=== PATIENT | female | born 1945 | race Caucasian/White ===

== ENCOUNTER → 2017-02-07 | Outpatient (CLI) | payer BC ==
[~2017-02-07] MED LIST: ALBUTEROL0.09 MG/A1 IH; ALPHAGAN OP; LEXAPRO10 MG PO; VITAMIN C BUFF500 MG PO; VITAMIN D1000 IU PO; XALATAN 2.5 ML2.5 ML OP; [UNRECOGNIZED DRUG - CODE] PO
== END ==
LOC: MC.RAD 16:48
DX: Z12.31 Encounter for screening mammogram for malignant neoplasm of breast (principal)

== ENCOUNTER → 2018-03-02 | Outpatient (CLI) | payer BC | LOC: MC.RAD 13:42 | DX: Z12.31 Encounter for screening mammogram for malignant neoplasm of breast (principal); N63.20 Unspecified lump in the left breast, unspecified quadrant ==

== ENCOUNTER → 2018-03-09 | Outpatient (CLI) | payer BC | LOC: MC.RAD 07:27 | DX: N60.02 Solitary cyst of left breast (principal) ==

== ENCOUNTER → 2019-03-28 | Outpatient (CLI) | payer BC | LOC: MC.RAD 11:00 | DX: Z12.31 Encounter for screening mammogram for malignant neoplasm of breast (principal) ==

== ENCOUNTER 2019-10-22 17:12 | Observation (INO) | payer MEDICARE, BC ==
[~2019-10-22] VITALS: Ht 167.6 cm; Wt 103.2 kg
[2019-10-22 17:37] LABS: BASO # 0.1 (0.0-0.2); BASO % 0.4 % (0.0-2.0); EOS # 0.1 (0.0-0.7); EOS % 0.4 % (0-4.0); GRAN # 12.3 (1.4-6.5); GRAN % 75.9 % (42.2-75.2); HEMATOCRIT 40.2 % (37.0-47.0); HEMOGLOBIN 12.9 g/dl (12.5-16.0); LYMPH # 2.6 (1.2-3.4); LYMPH % 15.9 % (20.0-51.0); MEAN CELL VOLUME 94 fl (80.0-100.0); MEAN CORPUSCULAR HEMOGLOBIN 30 pg (27.0-31.0); MEAN CORPUSCULAR HGB CONC 32 g/dl (33.0-37.0); MEAN PLATELET VOLUME 8.5 fl (7.4-10.4); MONO # 1.1 (0.1-0.6); MONO % 6.9 % (1.7-9.3); PLATELET COUNT 243 K/mm3 (130-400); REDCELL DISTRIBUTION WIDTH-CV 13.5 % (11.5-14.5)
[2019-10-22 17:47] LABS: ALANINE AMINOTRANSFERASE 21 U/L (4-34); ALKALINE PHOSPHATASE 101 U/L (50-136); ANION GAP 7 mmol/L (7-16); AST,SGOT 34 U/L (15-37); BILIRUBIN,TOTAL 0.6 mg/dL (0.0-1.0); BLOOD UREA NITROGEN 14 mg/dL (7-17); CALCIUM 9.1 mg/dL (8.4-10.2); CARBON DIOXIDE 28 mmol/L (22-30); CHLORIDE 102 mmol/L (98-107); CREATININE, serum 0.53 (0.52-1.25); GLUCOSE 112 mg/dL (74-106); POTASSIUM 3.9 mmol/L (3.4-5.0); SODIUM 136 mmol/L (137-145); TOTAL PROTEIN 7.4 gm/dL (6.4-8.2)
[2019-10-22 17:52] LABS: INR 1.1 (0.8-3.0); PROTHROMBIN TIME 12.4 SECONDS (9.7-12.8)
[2019-10-22 17:54] LABS: PARTIAL THROMBOPLASTIN TIME 28.4 SECONDS (26.0-37.0)
[2019-10-22 17:58] LABS: TROPONIN-I < 0.012 ng/mL (0.000-0.035)
--- NOTE | 2019-10-22 23:39 | NUR ---
RECIEVED PATIENT FROM [facility] IN PACU. PATIENT UNDERWENT GENERAL AND LOCAL FOR A "NASTY GALLBLADDER". PATIENT HAS A LEFT ANTICUBITAL IV THAT IS INFUSING WITH 150MLS/HR OF NORMAL SALINE. PATIENT HAS THREE LAP SITES THAT ARE COVERED WITH BANDAIDS THAT ARE CLEAN, DRY, AND INTACT. PATIENT WAS TITRATED DOWN TO NO O2. PATIENT IS ABLE TO DRINK SOME WATER AND EAT SOME JELLO. PATIENT IS NOT REPORTING ANY PAIN OR NAUSEA. PATIENT DOES HAVE A BOTTOM FRONT TOOTH THAT IS WIGGLY AND ABOUT TO FALL OUT FROM BEING INTUBATED. CHARGE NURSE AND HOUSE SUP NOTIFIED OF THIS. PATIENT HEART SOUNDS ARE S1 AND S2 AND LUNGS ARE CLEAR. BOWEL SOUNDS ARE HYPOACTIVE AT THIS TIME. WILL CONTINUALLY MONITOR.
[2019-10-22 23:41] VITALS: BP 101/54; PULSE 83
[2019-10-22 23:53] VITALS: BP 101/42; PULSE 81
[2019-10-23] VITALS (8 sets, daily range): BP systolic 84–100; BP diastolic 34–47; PULSE 72–78; TEMP 98–98.2
--- NOTE | 2019-10-23 05:14 | NUR ---
PATIENT HAS HAD A PRETTY UNEVENTFUL NIGHT SINCE COMING TO THE FLOOR. PATIENT HAS BEEN UP TO THE RESTROOM A COUPLE OF TIMES. PATIENT IS DENYING ANY PAIN. IV WAS LEAKING SO IT WAS TIGHTENED BACK UP AND WORKS GREAT, GOOD BLOOD RETURN. IV FLUIDS ARE INFUSING EVEN THOUGH PATIENT IS TAKING FLUIDS AND FOODS WITHOUT NAUSEA AND VOMITING BECAUSE OF PRESSURES BEING A LITTLE SOFT. DENIES ANY OTHER NEEDS. WILL REPORT OFF TO DAY SHIFT.
--- NOTE | 2019-10-23 05:24 | NUR ---
PATIENT REQUESTED PAIN MEDICATION FOR A HEADACHE.
--- NOTE | 2019-10-23 11:55 | NUR ---
First visit from the produce production team member. No needs right now.
== END 2019-10-23 12:00 | disposition home or self-care (01) ==
LOC: COL.ER 17:12 → MEDICAL 19:54
PROVIDERS: Emergency Medicine; ADMIT Surgery
DX: K80.12 Calculus of gallbladder with acute and chronic cholecystitis without obstruction (principal); K82.1 Hydrops of gallbladder; F41.9 Anxiety disorder, unspecified; J45.909 Unspecified asthma, uncomplicated; H40.9 Unspecified glaucoma; H40.059 Ocular hypertension, unspecified eye; K57.30 Diverticulosis of large intestine without perforation or abscess without bleeding; K44.9 Diaphragmatic hernia without obstruction or gangrene; M46.84 Other specified inflammatory spondylopathies, thoracic region; N28.1 Cyst of kidney, acquired; K76.89 Other specified diseases of liver; E66.9 Obesity, unspecified; Z68.36 Body mass index [BMI] 36.0-36.9, adult; Z87.891 Personal history of nicotine dependence; Z88.1 Allergy status to other antibiotic agents; Z79.899 Other long term (current) drug therapy; Z86.19 Personal history of other infectious and parasitic diseases
CPT/HCPCS: G0378; J0690; J1100; J1170; J1885; J2270; J2405; J2543; J2704; J3010; J7030; Q9967

== ENCOUNTER 2021-02-22 11:18 | Emergency (ER) | payer BC ==
[~2021-02-22] VITALS: Ht 167.6 cm; Wt 97.7 kg
[2021-02-22 11:21] VITALS: TEMP 99
[2021-02-22] MEDS ORDERED: NORCO 325 MG-51 TAB PO (13:36)
[2021-02-22 13:51] VITALS: BP 135/64; PULSE 87
== END 2021-02-22 13:51 | disposition home or self-care (01) ==
LOC: COL.ER 11:18
DX: S53.124A Posterior dislocation of right ulnohumeral joint, initial encounter (principal); W01.0XXA Fall on same level from slipping, tripping and stumbling without subsequent striking against object, initial encounter
CPT/HCPCS: J3010

== ENCOUNTER 2022-03-24 05:33 | Day surgery (SDC) | payer BC ==
[~2022-03-24] VITALS: Ht 167.6 cm; Wt 97.5 kg
[2022-03-24] VITALS (11 sets, daily range): BP systolic 105–130; BP diastolic 54–83; PULSE 60–95; TEMP 97.4–98.1
[~2022-03-24 05:33] MED LIST changes: +NORCO 325 MG-51 TAB PO
[2022-03-24] MEDS ORDERED: XALATAN EYE DROPS OU (06:15)
[2022-03-24] MEDS ORDERED: ALPHAGAN OPHTH D5 ML OU (06:16)
[2022-03-24] MEDS ORDERED: PROVENTIL0.09 MG/A1 IH (06:17)
[2022-03-24] MEDS ORDERED: CELEXA40 MG PO (06:18)
[2022-03-24] MEDS ORDERED: QUESTRAN4 GM/9 GM PO (06:18)
[2022-03-24 06:45] LABS: COLLECTION METHOD CATHETER
[2022-03-24 07:05] LABS: URINE APPEARANCE Clear (CLEAR/HAZY); URINE BLOOD Negative (NEGATIVE); URINE COLOR Yellow (YELLOW); URINE GLUCOSE Negative (NEGATIVE); URINE KETONE Negative (NEGATIVE); URINE NITRATE Negative (NEGATIVE); URINE PROTEIN(semi-quant) Negative (NEGATIVE); URINE UROBILINOGEN 0.2 E.U/dL (0.2-1.0)
[2022-03-24 07:12] LABS: MUCOUS Present (NOT PRESENT); SQUAMOUS EPITHELIAL None Seen /hpf (0-10); URINE BACTERIA None Seen /hpf (NONE SEEN); URINE WBC 0-2 /hpf (0-2)
--- NOTE | 2022-03-24 09:15 | NUR ---
arrived on unit per bed from PACU, awake and alert but sleepy, IV infusing and placed on pump at 75ml/hr, O2 on at 1L/NC and O2 sat 95%, colin cath patent draining clear yellow urine, BOBBI hose and SCDs on bilaterally, aquacel dressing to right knee CD&I, denies needs at this time, daughter at bedside
--- NOTE | 2022-03-24 09:45 | NUR ---
rests between checks, provided water and instructed her she can have water as she pleases, and will advance her diet as tolerated, verbalizes understanding
--- NOTE | 2022-03-24 11:30 | NUR ---
Tolerated clear liquids/crackers. States she is very hungry and would like a regular tray. Ordered at this time per previous MD order. VS still stable. Denies needs. Call light in reach. Will monitor.
--- NOTE | 2022-03-24 11:34 | NUR ---
PT notified of order to start formal PT today not POD #!.
--- NOTE | 2022-03-24 12:26 | NUR ---
States her right foot is numb and tingly. Adjusted SCDs and repositioned in bed. Good CMS. States more confortable but rating pain to the knee 5/10 on pain scale. States she would like pain meds with lunch tray as they have a tendency to cause N/V. Instructed to call when lunch arrives. Verbalizes understanding. Call light in reach. WIll monitor.
--- NOTE | 2022-03-24 13:06 | NUR ---
Called with c/o pain to right knee. Lunch tray has arrived-norco one tab given per dr order. Will monitor.
--- NOTE | 2022-03-24 13:53 | NUR ---
Patient is up in chair with PT at this time. Second tab of norco given at this time for pain rated 6/10 on pain scale to right knee. Will monitor.
--- NOTE | 2022-03-24 15:13 | NUR ---
18 F colin cath placed at this time with immediate clear yellow output returned.
--- NOTE | 2022-03-24 17:09 | NUR ---
Patient has had an uneventful day. Was up out of bed with PT x1 to chair-tolerated well. [place] given x1 for pain with good results. Dressing remains with scant drainage spots. SCDs/TEDs bilat. VS remain stable. ICE pack PRN. Tolerating diet. Denies questions/concerns. Verbalizes understanding. Call light in reach. Will monitor.
--- NOTE | 2022-03-24 19:37 | NUR ---
PT A&OX4 RESTING IN BED. MEDS GIVEN AND ASSESSMENT COMPLETE. PT DENIES PN. SCDS AND TEDS TO BLE. D5LR AT 60ML/HR IN LH. RT KNEE DRESSING CDI. THOMPSON TO DD W YELLOW URINE OUTPUT. NO NEEDS AT THIS TIME. CALL LIGHT WITHIN REACH.
[2022-03-25 00:05] VITALS: BP 100/48; PULSE 68; TEMP 97.7
[2022-03-25 04:00] VITALS: BP 105/53; PULSE 71; TEMP 97.5
--- NOTE | 2022-03-25 05:56 | NUR ---
DONNA DC'S WITHOUT DIFFICULTY. AQUACELL CHANGED DUE TO BLOOD SEEPING THROUGH AND SOILING PTS BOBBI HOSE AND LINENS. PT DENIES PN.
[2022-03-25 06:23] LABS: HEMOGLOBIN 8.7 g/dl (12.5-16.0)
[2022-03-25] MEDS ORDERED: ASPI325T6 PO (06:37)
[2022-03-25] MEDS ORDERED: CELEBREX 200MG200 MG PO (06:38)
[2022-03-25] MEDS ORDERED: ULTRAM 50MG TAB50 MG PO (06:38)
[2022-03-25] MEDS ORDERED: NORCO 325 MG-7.1 TAB PO (06:38)
[2022-03-25 07:52] VITALS: BP 113/46; PULSE 87; TEMP 98.6
--- NOTE | 2022-03-25 08:00 | NUR ---
Pt. sitting up in chair at this time. Pt. is A&OX3, assessment complete. INT to lt. hand patent. Pt. reports pain at a 4 on pain scale, will give pain meds per orders. Pt. denies further needs, call light within reach.
--- NOTE | 2022-03-25 10:23 | NUR ---
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 Candie and her daughter Eliz thanked Electronic Components Assembler for coming in and offering prayer and God's blessings.
--- NOTE | 2022-03-25 10:50 | NUR ---
Pt. has met discharge criteria. Pt. given and reviewed discharge paperwork. INT discontinued fro lt. hand. Pt. dressed and escorted out by Wheelchair.
== END 2022-03-25 10:50 | disposition home or self-care (01) ==
LOC: SDCO 05:33 → EDSTATUS 07:15 → SDCO 07:15 → SURG 11:05 → SDCO 03-25 10:50
PROVIDERS: Orthopaedic Surgery; Physician Assistant
DX: M17.11 Unilateral primary osteoarthritis, right knee (principal); M25.761 Osteophyte, right knee; Z86.16 Personal history of COVID-19
CPT/HCPCS: OP; A9284; C1713; C1776; J0690; J1100; J1885; J2250; J2405; J2704; J3010; J7120